=== PATIENT | male | born 1970 ===

== ENCOUNTER 2019-02-26 10:11 | Day surgery (SDC) | payer BC ==
[2019-02-26] VITALS (9 sets, daily range): BP systolic 129–142; BP diastolic 78–87
[~2019-02-26] VITALS: Ht 172.7 cm; Wt 111.1 kg
[~2019-02-26 10:11] MED LIST: ceFAZolin sod 1 GM in NS 55 ML IVPB ONE
[2019-02-26] MEDS ORDERED: NKM (10:46)
[2019-02-26] MEDS ORDERED: LR 1000ml 1,000 ML IVLG SCH (11:43)
[2019-02-26] MEDS ORDERED: DiphenhydrAMINE 50mg/ml Inj IVP PRN (11:45)
[2019-02-26] MEDS ORDERED: oxyCODONE HCL/Acetaminophen 5/325mg ORAL PRN (11:45)
[2019-02-26] MEDS ORDERED: HYDROcodone/Acetamin 5/325 tab ORAL PRN (11:45)
[2019-02-26] MEDS ORDERED: Atropine Sulfate 0.4mg/ml inj IVP PRN (11:45)
[2019-02-26] MEDS ORDERED: HYDROcodone/Acetamin 7.5/325 tab ORAL PRN (11:45)
[2019-02-26] MEDS ORDERED: Midazolam 2mg/2ml Inj IVP PRN (11:45)
[2019-02-26] MEDS ORDERED: Metoclopramide 10mg/2ml Inj IVP PRN (11:45)
[2019-02-26] MEDS ORDERED: Hydromorphone 0.5mg/0.5ml inj IVP PRN (11:45)
[2019-02-26] MEDS ORDERED: Labetalol 5mg/ml 20ml vial IV PRN (11:45)
[2019-02-26] MEDS ORDERED: fentaNYL 100 mcg/2 mL IV PRN (11:45)
[2019-02-26] MEDS ORDERED: Meperidine 50mg/ml Inj(FOR RIGORS ONLY) IVP PRN (11:45)
[2019-02-26] MEDS ORDERED: Ketorolac 30mg Inj IV PRN ×2 (11:45)
[2019-02-26] MEDS ORDERED: Acetaminophen (Non formulary) 100 ML IV ONE (11:45)
[2019-02-26] MEDS ORDERED: LORazepam Inj 2mg/ml 1ml IV PRN (11:45)
--- NOTE | 2019-02-26 11:45 | Anethesia Preoperative Eval ---
Anesthesia Pre-op PMH/ROS General Date of Evaluation: February 26, 2019 Time of Evaluation: 12:31 Anesthesiologist: Belkis ASA Score: ASA 3 Mallampati Score Class I : Soft palate, uvula, fauces, pillars visible Class II: Soft palate, uvula, fauces visible Class III: Soft palate, base of uvula visible Class IV: Only hard plate visible Mallampati Classification: Class II Surgeon: Keisha Diagnosis: Deviated Septum Surgical Procedure: Septoplasty, Bilateral Turbinectomies Anesthesia History: none Family History: no anesthesia problems Allergies: Coded Allergies: No Known Allergies (Unverified , 02/26/19) Medications: see eMAR Patient NPO?: Yes Past Medical History Gastrointestinal/Genitourinary: Reports: other - Renolithiasis Other: obesity - BMI 40 PSxH Narrative: R bunionectomy, RIHR, Cholecystectomy Anesthesia Pre-op Phys. Exam Physician Exam Last Vital Signs Date Time Temp Pulse Resp B/P (MAP) Pulse Ox O2 Delivery O2 Flow Rate FiO2 02/26/19 10:44 Room Air 02/26/19 10:42 97.8 61 18 129/78 98 Constitutional: NAD Neurologic: CN 2-12 intact Cardiovascular: RRR Respiratory: CTA Gastrointestinal: S/NT/ND Airway Exam Mallampati Score: Class II MO: full ROM: full Teeth: intact Anesthesia Pre-op A/P Risk Assessment & Plan Assessment: ASA 3 Plan: GA, SED, GlideScope Go Status Change Before Surgery: No Pre-Antibiotics Dru Gram Ancef IV Given Within 1 Hr of Incision: Yes Time Given: 12:51 Eze Tamayo MD February 26, 2019 11:45
[2019-02-26] MEDS ORDERED: Cocaine HCl 4% 4ml vial TOPIC ONE (12:00)
[2019-02-26] MEDS ORDERED: Betadine 10% Oint 30gm TOPIC ONE (12:01)
[2019-02-26] MEDS ORDERED: Lidocaine 1% 10mg/ml/EPI 0.01mg/ml 50ml INJ ONE (12:01)
[2019-02-26] MEDS ORDERED: Kenalog-40 1ml Vial ONE (12:01)
[2019-02-26] MEDS ORDERED: Oxymetazoline 0.05% Na Spray 30ml NASAL ONE (12:01)
[2019-02-26] MEDS ORDERED: Zemuron 50mg/5ml Inj IV ONE (12:03)
[2019-02-26] MEDS ORDERED: Sodium Chloride 10ml vial INJ ONE (12:07)
[2019-02-26] MEDS ORDERED: Dexamethasone 4mg/ml vial ONE (12:07)
[2019-02-26] MEDS ORDERED: Lidocaine 1% MPF 10mg/ml 5ml ONE (12:07)
[2019-02-26] MEDS ORDERED: fentaNYL 100 mcg/2 mL IV ONE (12:08)
[2019-02-26] MEDS ORDERED: Lidocaine 1% Plain 30 ml INJ ONE ×3 (12:10→14:14)
--- NOTE | 2019-02-26 12:19 | Pre-Procedure Note/Attestation ---
Pre-Procedure Note/Attestation Complete Prior to Procedure Planned Procedure: not applicable Procedure Narrative: nasal obstruction unresponsive to medication Indications for Procedure Pre-Operative Diagnosis: septal deviation, bilateral hypertrophied inferior turbinates. obstructing nasal deformity Attestation I attest that I discussed the nature of the procedure; its benefits; risks and complications; and alternatives (and the risks and benefits of such alternatives ), prior to the procedure, with the patient (or the patient's legal hardware supplies sales representative). I attest that, if there was a reasonable possibility of needing a blood transfusion, the patient (or the patient's legal hardware supplies sales representative) was given the [facility] standardized written summary, pursuant to the Boaz Kelsy Blood Safety Act ([place] Health and Safety Code # 1645, as amended). I attest that I re-evaluated the patient just prior to the surgery and that there has been no change in the patient's H&P, except as documented below: Gamal Valdes MD February 26, 2019 12:19
[2019-02-26] MEDS ORDERED: Sterile Water Irrig 1000ml IRRIG ONE (12:30)
[2019-02-26] MEDS ORDERED: NS Irrig 1000ml ONE (12:30)
[2019-02-26] MEDS ORDERED: Propofol 1,000mg/ 100ml btl IV ONE (12:30)
[2019-02-26] MEDS ORDERED: LR 1000ml ONE (12:30)
--- NOTE | 2019-02-26 13:15 | Immediate Post-Op Evaluation ---
Immediate Post-Op Evalulation Immediate Post-Op Evalulation Procedure: Septoplasty, Bilateral Turbinectomies Date of Evaluation: February 26, 2019 Time of Evaluation: 13:09 IV Fluids: 700 LR Blood Products: 0 Estimated Blood Loss: 50 Urinary Output: 0 Blood Pressure Systolic: 132 Blood Pressure Diastolic: 87 Pulse Rate: 88 Respiratory Rate: 16 O2 Sat by Pulse Oximetry: 100 Temperature (Fahrenheit): 97.8 Pain Score (1-10): 2 Nausea: No Vomiting: No Complications 0 Patient Status: awake, reacts, patent, extubated, none Hydration Status: adequate Dru Gram Ancef IV Given Within 1 Hr of Incision: Yes Time Given: 12:51 Eze Tamayo MD February 26, 2019 13:15
--- NOTE | 2019-02-26 13:16 | 48 Hour Post Anesthesia Eval ---
Post Anesthesia Evaluation Procedure: Septoplasty, Bilateral Turbinectomies Date of Evaluation: February 26, 2019 Time of Evaluation: 17:12 Blood Pressure Systolic: 128 0: 78 Pulse Rate: 64 Respiratory Rate: 18 Temperature (Fahrenheit): 98.2 O2 Sat by Pulse Oximetry: 100 Airway: patent Nausea: No Vomiting: No Pain Intensity: 2 Hydration Status: adequate Cardiopulmonary Status: Stable Mental Status/LOC: patient returned to baseline Follow-up Care/Observations: 0 Post-Anesthesia Complications: 0 Follow-up care needed: ready to discharge Eze Tamayo MD February 26, 2019 13:16
[2019-02-26] MEDS ORDERED: Neostigmine 1mg/ml 10ml Inj ONE (14:36)
[2019-02-26] MEDS ORDERED: Glycopyrrolate 0.2mg/ml 1ml Vial ONE (14:36)
--- NOTE | 2019-02-26 14:53 | Brief Operative Note ---
Immediate Post Operative Note Operative Note Chief Complaint: nasal obstruction Pre-op Diagnosis: septal deviation, bilateral hypertrophied inferior turbinates. obstructing nasal deformity Post-op Diagnosis: septal deviation, bilateral inferior turbinates Surgeon: Gamal Valdes M.D. Anesthesiologist: Severino May Anesthesia: general Specimen: yes - septum Complications: none Condition: stable Fluids: ringers lactate Estimated Blood Loss: minimal Packing: telfa Implant(s) used?: No Gamal Valdes MD February 26, 2019 14:53
--- NOTE | 2019-03-01 22:30 | Operative Note - Dictated ---
DATE OF OPERATION: 02/26/2019 SURGEON: Gamal Valdes M.D. ANESTHESIOLOGIST: Eze Tamayo M.D. ANESTHESIA: General. PREOPERATIVE DIAGNOSES: 1. Septal deviation. 2. Bilateral hypertrophied inferior turbinates. 3. Obstructing nasal deformity. POSTOPERATIVE DIAGNOSES: 1. Septal deviation. 2. Bilateral hypertrophied inferior turbinates. PROCEDURES: 1. Septoplasty. 2. Bilateral inferior turbinectomies with intramural coagulation. INDICATIONS FOR SURGERY: The patient is a 48-year-old male who experiences right greater than left nasal airway obstruction, unresponsive to medication. Examination revealed the right nasal passage almost completely blocked by severely deviated septum and hypertrophied right inferior turbinate. The left nasal chamber is also significantly obstructed secondary to a large maxillary crest spur and the hypertrophied inferior turbinates. He is now being brought to the operating room for surgical repair. The findings at surgery revealed a severely convex right septal deviation, which is overriding a huge right maxillary crest spur pushing in the right inferior turbinate and the middle turbinate as well as obstructing the middle meatus. Left nasal chamber examination revealed a huge left maxillary crest spur with a significantly hypertrophied left interior turbinate. At the time of surgery, the patient is not found to have any obstructing deformity at the superior aspect of the right septum where the combination of the severely deviated septum maxillary crest and hypertrophied turbinate. DESCRIPTION OF PROCEDURE: The patient was brought to the operating room while premedicated and having received preoperative antibiotics. He was placed in supine position on the operating room table. The patient underwent satisfactory endotracheal intubation. He was given intravenous sedation. The nasal cavity was then sprayed with 0.25% Reginald-Synephrine. A sterile Q-tip saturated Betadine was used to sterilize the intranasal area. Approximately 25 to 26 mL of 1% Xylocaine with 1:100,000 epinephrine were used to inject the nasal and septal frameworks. Less than 200 mg of cocaine were used on intranasal packing. The patient was prepped and draped in the usual sterile fashion. It is of note that the patient had severe right nasal airway obstruction with a small area of the right nasal cavity with the cocaine. After a suitable period of vasoconstriction, the packing was removed. The #15 blade was used to make a right inferior septal incision running into the thick scar tissue. Eventually, a right mucoperichondrial mucoperiosteal flap was then elevated. An incision was made between the cartilage and bony septum. The left mucoperiosteal flap was then elevated. That portion of overriding obstructing perpendicular plate of the ethmoid and vomer bone incised in strips with a CRPS, for operative attachments, and removed from the field of operation. A similar procedure was performed in the cartilaginous septum running into semi-ossified cartilage. The mallet and chisel were then used to remove a huge obstructing right maxillary crest spur. The mallet and chisel was also used to remove the left maxillary crest spur. Re-examination now revealed a septum to the midline. The inferior turbinate and middle turbinate was found to be indented by the severe deviation of the septum and maxillary crest spur and septal combination and was still quite hypertrophied. Bipolar intramural coagulation of both inferior turbinates was then performed. An incision was made in the undersurface of both inferior turbinates and mucosa stripped the underlying bone. The inferior turbinates were outfractured and small piece of bone removed from the pocket. Re-examination revealed the patient to have a good bilateral nasal airway. All blood was suctioned from the nose and nasopharynx area. A 4-0 plain was used to close the septal incision as well as splint the septum. Telfa coated with Betadine ointment was secured intranasally with a suture of 3-0 silk and the procedure was terminated. The patient tolerated the procedure well and left the operating room in satisfactory condition. Estimated blood loss was 20 mL. Sponge and needle counts were correct. Gamal Valdes M.D. DR: JOHN JOB#: [id number] CC:
== END 2019-02-26 17:05 | disposition home or self-care (01) ==
LOC: SUR 10:11 → EDBD 12:00 → SUR 17:05
DX: J34.2 Deviated nasal septum (principal); J34.3 Hypertrophy of nasal turbinates; M95.0 Acquired deformity of nose; G47.30 Sleep apnea, unspecified; Z90.49 Acquired absence of other specified parts of digestive tract; E66.9 Obesity, unspecified; Z68.37 Body mass index [BMI] 37.0-37.9, adult
CPT/HCPCS: 30140; 30520; J0690; J1100; J1885; J2001; J2250; J2405; J2704; J2710; J3010; 94003; 94150